=== PATIENT | male | born 1985 | race Caucasian/White ===

== ENCOUNTER 2023-02-19 21:03 | Emergency (ER) | payer SELFPAY ==
[~2023-02-19] VITALS: Ht 167.6 cm; Wt 76.2 kg
[2023-02-19 21:36] VITALS: BP 115/80; PULSE 83; RESP 20; TEMP 97.8; O2SAT 99
[2023-02-19 22:38] LABS: FLU A ANTIGEN negative (NEGATIVE); FLU B ANTIGEN NEGATIVE (NEGATIVE)
[2023-02-20] MEDS ORDERED: KETOROLAC 15 MG/ML VIAL IM ONE (00:30)
[2023-02-20] MEDS ORDERED: ACETAMINOPHEN EXTRA STRENGTH 500 MG TAB PO ONE (00:30)
[2023-02-20 02:31] VITALS: BP 115/80; PULSE 83; RESP 20; TEMP 97.8; O2SAT 99
== END 2023-02-20 02:31 | disposition home or self-care (01) ==
LOC: MED 21:03 → EDSEX 21:03 → MED 02-20 02:31
DX: B34.9 Viral infection, unspecified (principal); R06.02 Shortness of breath; F41.9 Anxiety disorder, unspecified; Z20.822 Contact with and (suspected) exposure to COVID-19
CPT/HCPCS: 71046; 87426; 87804; 96372; 99284; J1885